=== PATIENT | male | born 1980 | race Caucasian/White ===

== ENCOUNTER 2018-08-30 06:21 | Emergency (ER) | payer OTHER ==
--- NOTE | 2018-08-30 06:47 | ED Physician Chart ---
ED Chief Complaint/HPI - Patient Information Date Seen:: 08/30/18 Time Seen:: 06:30 Chief Complaint:: sore throat History of Present Illness:: location: throat quality: sore throat severity: mild, mod duration: about one week context: reports onset of sore throat. no nasal symptoms. no fever, but says throat is red and swollen, more pain on right side. no vomiting, no diarrhea no difficulty breathing. decided to come to the ER today for evaluation because of persistent symptoms without spontaneous improvement. mod factors: none assoc s/s: none hx from pt. Allergies:: Allergies Allergy/AdvReac Type Severity Reaction Status Date / Time No Known Allergies Allergy Verified 08/30/18 06:36 Vitals:: Vital Signs - 8 hr 08/30/18 06:25 Temp 99.1 F HR 80 RR 16 BP 136/81 O2 Sat % 99 Historian:: Patient Review:: Nurse's Note Reviewed ED Review of Systems - Review of Systems General/Constitutional: No fever, No chills, No weight loss, No weakness, No diaphoresis, No edema, No loss of appetite Skin: No skin lesions, No rash, No bruising Head: No headache, No light-headedness Eyes: No loss of vision, No pain, No diplopia ENT: No earache, No nasal drainage, Sore throat, No tinnitus Neck: No neck pain, No swelling, No thyromegaly, No stiffness, No mass noted Cardio Vascular: No chest pain, No palpitations, No PND, No orthopnea, No edema Pulmonary: No SOB, No cough, No sputum, No wheezing GI: No nausea, No vomiting, No diarrhea, No pain, No melena, No hematochezia, No constipation, No hematemesis G/U: No dysuria, No frequency, No hematuria Musculoskeletal: No bone or joint pain, No back pain, No muscle pain Endocrine: No polyuria, No polydipsia Psychiatric: No prior psych history, No depression, No anxiety, No suicidal ideation Hematopoietic: No bruising, No lymphadenopathy Allergic/Immuno: No urticaria, No angioedema Neurological: No syncope, No focal symptoms, No weakness, No paresthesia, No headache, No seizure, No dizziness, No confusion, No vertigo ED Past Medical History - Past Medical History Past Medical History: No significant medical hx Family History: None Social History: Non Smoker, No Alcohol, No Drug Use Surgical History: None Psychiatricy History: None Medication: None Family Medical History - Family Member Mother History Unknown: Yes ED Physical Exam - Physical Examination General/Constitutional: Awake, Well-developed, well-nourished, Alert, No distress, GCS 15, Non-toxic appearing, Ambulatory Head: Atraumatic Eyes: Lids, conjuctiva normal, PERRL, EOMI Skin: Nl inspection, No skin lesions, Well hydrated ENMT: External ears, nose nl, Nasal exam nl, Lips, teeth, gums nl, Oropharynx nl (posterior oropharyngeal erythema with enlarged tonsil right side more than left side. mild exudate (will treat as strep infection, strep like infection penicillin 500mg po TID x 10 days)) Neck: Nontender (right sided palpable lymph node, no lymph node left neck), Full ROM w/o pain, No JVD, No nuchal rigidity, No bruit, No mass, No stridor ED Assessment - Assessment General Assessment: pt stable, afebrile during visit ED Septic Shock - . Is Septic Shock (SBP<90, OR Lactate>4 mmol\L) present?: No - <6hrs of presentation: Vital Signs: Vital Signs - 8 hr 08/30/ 06:25 Temp 99.1 F HR 80 RR 16 BP 136/81 O2 Sat % 99 Assessment of Lungs: Lung CTA bilateral Assessment of Heart: RRR Capillary refill evaluation: Capillary refill < 2 secs Skin Exam: Warm, Dry, Good Turgur ED Reassessment (Disposition) - Reassessment Reassessment:: medical decision making pt stable during ER stay has right sided sore throat with enlarged tonsil and adenopathy no other URI symptoms. no cough, no rhinorrhea. findings are consistent with strep and strep like infection will treat with penicillin 500mg po TID x 10 days pt also advised to FU in clinic for recheck tomorrow Reassessment Condition:: Improved - Diagnosis Diagnosis:: Pharyngitis, strep like infection - Aftercare/Follow up Instructions Aftercare/Follow-Up Instructions:: Refer to Discharge Instructions Medication Prescribed:: penicillin 500mg po TID x 10 days - Patient Disposition Discharge/Transfer:: Home Condition at Disposition:: Stable
== END 2018-08-30 07:00 | disposition home or self-care (01) ==
LOC: ER 06:21
DX: J02.9 Acute pharyngitis, unspecified (principal)
CPT/HCPCS: 87070-90; 87081-90; Z7502